=== PATIENT | female | born 1935 | race Two or more races ===

== ENCOUNTER 2023-10-09 11:56 | Inpatient (IN) | payer OTHER ==
[~2023-10-09] VITALS: Ht 160 cm; Wt 56.0 kg
[2023-10-09] MEDS ORDERED: SODIUM CHLORIDE 0.9% 1,000 ML IV ONE ×2 (13:45→15:45)
[2023-10-09 14:30] LABS: Basophils # (auto) 0 10 ^3/uL (0-0.2); Basophils % (auto) 0.3 % (0.0-2.0); Eosinophils # (auto) 0 10 ^3/uL (0-0.8); Hematocrit 43.7 % (36.0-46.0); Hemoglobin 14.3 g/dL (12.2-16.2); Lymphocytes # (auto) 0.6 10 ^3/uL (0.4-5.4); Lymphocytes % (auto) 3.6 % (10.0-50.0); Mean Corpuscular Hemoglobin 31.6 pg (28.0-32.0); Mean Corpuscular Hgb Conc. 32.6 g/dL (32.0-36.0); Mean Corpuscular Volume 96.8 fL (80.0-100.0); Monocytes # (auto) 1.4 10 ^3/uL (0-1.3); Monocytes % (auto) 8.4 % (0.0-12.0); Neutrophils # (auto) 14.2 10 ^3/uL (1.6-8.6); Neutrophils % (auto) 87.7 % (37.0-80.0); Red Blood Cells 4.51 10^6/uL (4.0-5.20); White Blood Cell 16.2 10^3/uL (4.4-10.8)
[2023-10-09 14:46] LABS: Alanine Aminotransferase 15 U/L (7-40); Albumin 4.8 g/dL (3.2-4.8); Alkaline Phosphatase 86 U/L (46-116); Anion Gap 12 (5-15); Aspartate Aminotransferase 15 U/L (13-40); BUN/Creatinine Ratio 14.8 (10.0-20.0); Blood Urea Nitrogen 18 mg/dL (9-23); Calcium 9.4 mg/dL (8.7-10.4); Carbon Dioxide 21 mmol/L (20-30); Chloride 103 mmol/L (98-107); Glucose 238 mg/dL (74-106); Lipase 25 U/L (12-53); Potassium 4.4 mmol/L (3.5-5.1); Sodium 136 mmol/L (136-145)
[2023-10-09 14:47] LABS: Bilirubin, Total 1.2 mg/dL (0.2-1.0); Total Protein 7.9 g/dL (5.7-8.2)
[2023-10-09 14:51] LABS: INR 1.09 (0.9-1.15); Partial Thromboplastin Time 33.3 SEC (24.5-34.5); Prothrombin Time 11.4 sec (9.3-11.8)
[2023-10-09] MEDS ORDERED: levoFLOXacin 500MG 100 ML IV ONE (15:00)
[2023-10-09 15:08] LABS: Lactic Acid w/Reflex 2.4 mmol/L (0.4-2.0)
[2023-10-09 15:30] VITALS: PULSE 99; RESP 24; O2SAT 93
[2023-10-09] MEDS ORDERED: PANTOPRAZOLE 40 MG/10 ML VIAL INJ IV ONE (15:45)
[2023-10-09] MEDS ORDERED: cefTRIAXone 1GM/50ML D5W 50 ML IV ONE (15:45)
[2023-10-09] MEDS ORDERED: metroNIDAZOLE 500MG/100ML 100 ML IV ONE (15:45)
[2023-10-09] MEDS: SODIUM CHLORIDE 0.9% 1,000 ML IV SCH (15:45)
[2023-10-09] MEDS ORDERED: DEXTROSE (50%) 50ML SYRG IV PRN (15:45)
[2023-10-09] MEDS ORDERED: NITR100C6 PO (15:48)
[2023-10-09] MEDS ORDERED: GLUC-245 XX (15:48)
[2023-10-09] MEDS ORDERED: MEMA1TAB3 PO (15:48)
[2023-10-09] MEDS ORDERED: METF-372 PO (15:48)
[2023-10-09] MEDS ORDERED: LISI-275 PO (15:48)
[2023-10-09] MEDS ORDERED: DONE5TAB80 PO (15:48)
[2023-10-09] MEDS ORDERED: GLIP5TAB12 PO (15:48)
[2023-10-09] MEDS ORDERED: INSUINJ37 SC (15:48)
[2023-10-09] MEDS ORDERED: TAMS0.4C36 PO (15:48)
[2023-10-09 16:53] LABS: Urine Bacteria FEW /hpf (None Seen); Urine Blood 1+ /uL (Negative); Urine Clarity HAZY (Clear); Urine Color Yellow (Yellow); Urine Protein, UAD 2+ (Negative); Urine Urobilinogen Normal (Negative); Urine WBC 119 /hpf (0 - 5); Urine pH 5.5 (5.0-8.0)
[2023-10-09] MEDS: ACCU-CHEK COMFORT CURVE STRIP VI SCH ×2 (17:00→22:00)
[2023-10-09] MEDS: InsuLIN REG 1unit/0.01ml Soln (100units/ml) SC SCH ×2 (17:00→22:51)
[2023-10-09 19:28] VITALS: BP 160/79; PULSE 108; RESP 18; TEMP 97.5
[2023-10-09 20:00] VITALS: PULSE 108; RESP 18; O2SAT 92
[2023-10-09 21:28] VITALS: BP 156/74; PULSE 111; RESP 20; TEMP 98.2; O2SAT 93
[2023-10-09] MEDS: metroNIDAZOLE 500MG/100ML 100 ML IV SCH (22:49)
[2023-10-10] VITALS (8 sets, daily range): BP systolic 139–166; BP diastolic 62–81; PULSE 88–110; RESP 18–20; TEMP 97.2–98.7; O2SAT 92–96
[2023-10-10] MEDS: MORPHINE SULFATE INJ 2 MG/ml SYRG IV PRN (03:21)
[2023-10-10 05:44] LABS: Basophils # (auto) 0.1 10 ^3/uL (0-0.2); Basophils % (auto) 0.3 % (0.0-2.0); Eosinophils # (auto) 0 10 ^3/uL (0-0.8); Hematocrit 39.4 % (36.0-46.0); Hemoglobin 12.9 g/dL (12.2-16.2); Lymphocytes # (auto) 0.9 10 ^3/uL (0.4-5.4); Lymphocytes % (auto) 5.3 % (10.0-50.0); Mean Corpuscular Hemoglobin 31.4 pg (28.0-32.0); Mean Corpuscular Hgb Conc. 32.8 g/dL (32.0-36.0); Mean Corpuscular Volume 95.8 fL (80.0-100.0); Monocytes % (auto) 11.8 % (0.0-12.0); Neutrophils # (auto) 14.2 10 ^3/uL (1.6-8.6); Neutrophils % (auto) 82.6 % (37.0-80.0); Red Blood Cells 4.11 10^6/uL (4.0-5.20); Red Cell Distribution Width 14.2 % (11.8-14.3); White Blood Cell 17.2 10^3/uL (4.4-10.8)
[2023-10-10 05:53] LABS: Alanine Aminotransferase 13 U/L (7-40); Alkaline Phosphatase 79 U/L (46-116); Anion Gap 13 (5-15); BUN/Creatinine Ratio 17.9 (10.0-20.0); Blood Urea Nitrogen 20 mg/dL (9-23); Calcium 9.2 mg/dL (8.7-10.4); Carbon Dioxide 18 mmol/L (20-30); Chloride 106 mmol/L (98-107); Glucose 161 mg/dL (74-106); Potassium 4.6 mmol/L (3.5-5.1); Sodium 137 mmol/L (136-145)
[2023-10-10 05:54] LABS: Albumin 4.2 g/dL (3.2-4.8); Aspartate Aminotransferase 26 U/L (13-40); Bilirubin, Total 0.8 mg/dL (0.2-1.0)
[2023-10-10 05:55] LABS: Total Protein 7.1 g/dL (5.7-8.2)
[2023-10-10] MEDS: InsuLIN REG 1unit/0.01ml Soln (100units/ml) SC SCH ×4 (06:37→22:04)
[2023-10-10] MEDS: metroNIDAZOLE 500MG/100ML 100 ML IV SCH ×3 (06:39→21:35)
[2023-10-10] MEDS: ACCU-CHEK COMFORT CURVE STRIP VI SCH ×4 (06:42→21:56)
[2023-10-10] MEDS: MEMANTINE HCL 5 MG TAB PO SCH (09:38)
[2023-10-10] MEDS: PANTOPRAZOLE 40 MG/10 ML VIAL INJ IV SCH (09:39)
[2023-10-10] MEDS: LISINOPRIL 5 MG TAB PO SCH (09:39)
[2023-10-10] MEDS: DONEPEZIL HYDROCHLORIDE 5 MG TAB PO SCH (09:39)
[2023-10-10] MEDS: cefTRIAXone 1GM/50ML D5W 50 ML IV SCH (09:41)
[2023-10-10] MEDS: SODIUM CHLORIDE 0.9% 1,000 ML IV SCH ×2 (09:49→18:25)
[2023-10-10] MEDS: METOPROLOL TARTRATE 25 MG TAB PO SCH (21:46)
[2023-10-11] VITALS (8 sets, daily range): BP systolic 134–184; BP diastolic 56–71; PULSE 72–94; RESP 17–94; TEMP 97.7–98.9; O2SAT 90–96
[2023-10-11] MEDS: metroNIDAZOLE 500MG/100ML 100 ML IV SCH ×3 (05:31→21:48)
[2023-10-11] MEDS: ACCU-CHEK COMFORT CURVE STRIP VI SCH ×4 (06:20→21:49)
[2023-10-11] MEDS: InsuLIN REG 1unit/0.01ml Soln (100units/ml) SC SCH ×4 (06:25→22:00)
[2023-10-11] MEDS: PANTOPRAZOLE 40 MG/10 ML VIAL INJ IV SCH (09:59)
[2023-10-11] MEDS: MEMANTINE HCL 5 MG TAB PO SCH (10:00)
[2023-10-11] MEDS: METOPROLOL TARTRATE 25 MG TAB PO SCH ×2 (10:03→21:49)
[2023-10-11] MEDS: LISINOPRIL 5 MG TAB PO SCH (10:04)
[2023-10-11] MEDS: DONEPEZIL HYDROCHLORIDE 5 MG TAB PO SCH (10:04)
[2023-10-11] MEDS: cefTRIAXone 1GM/50ML D5W 50 ML IV SCH (10:08)
[2023-10-11] MEDS: MORPHINE SULFATE INJ 2 MG/ml SYRG IV PRN ×2 (10:13→23:29)
[2023-10-11] MEDS: SODIUM CHLORIDE 0.9% 1,000 ML IV SCH (13:00)
[2023-10-12] VITALS (8 sets, daily range): BP systolic 124–134; BP diastolic 50–70; PULSE 73–83; RESP 16–23; TEMP 97.1–98.1; O2SAT 93–98
[2023-10-12] MEDS: SODIUM CHLORIDE 0.9% 1,000 ML IV SCH ×2 (02:20→15:40)
[2023-10-12] MEDS: metroNIDAZOLE 500MG/100ML 100 ML IV SCH ×3 (05:49→22:41)
[2023-10-12] MEDS: ACCU-CHEK COMFORT CURVE STRIP VI SCH ×4 (06:25→22:42)
[2023-10-12] MEDS: InsuLIN REG 1unit/0.01ml Soln (100units/ml) SC SCH ×4 (06:29→22:53)
[2023-10-12] MEDS: cefTRIAXone 1GM/50ML D5W 50 ML IV SCH (10:51)
[2023-10-12] MEDS: DONEPEZIL HYDROCHLORIDE 5 MG TAB PO SCH (10:51)
[2023-10-12] MEDS: METOPROLOL TARTRATE 25 MG TAB PO SCH ×2 (10:52→22:42)
[2023-10-12] MEDS: MEMANTINE HCL 5 MG TAB PO SCH (10:53)
[2023-10-12] MEDS: LISINOPRIL 5 MG TAB PO SCH (10:54)
[2023-10-12] MEDS ORDERED: BUPIVACAINE HCL 0.25% P/F 10 ML VIAL ONE (13:55)
[2023-10-12] MEDS ORDERED: MEPERIDINE HCL (25 MG/ML) 1ML VIAL ONE (13:59)
[2023-10-12] MEDS ORDERED: fentaNYL CITRATE 100 MCG/2 ML VL ONE (13:59)
[2023-10-12] MEDS ORDERED: MIDAZOLAM HCL 2MG/2ML 2ml VIAL (1mg/ml) ONE (13:59)
[2023-10-12] MEDS ORDERED: ONDANSETRON HCL 4 MG/2 ML VIAL IV ONE (14:44)
[2023-10-12] MEDS ORDERED: MIDAZOLAM HCL 2MG/2ML 2ml VIAL (1mg/ml) IV PRN (14:45)
[2023-10-12] MEDS ORDERED: ACCU-CHEK COMFORT CURVE STRIP VI ONE (14:45)
[2023-10-12] MEDS ORDERED: LABETALOL HCL 5 MG/ML 4ML SYRINGE IV PRN (14:45)
[2023-10-12] MEDS ORDERED: MORPHINE SULFATE INJ 2 MG/ml SYRG IV PRN (14:45)
[2023-10-12] MEDS ORDERED: ePHEDrine SULFATE 50 MG/ML AMP IV PRN (14:45)
[2023-10-12] MEDS ORDERED: ONDANSETRON HCL 4 MG/2 ML VIAL IV PRN (14:45)
[2023-10-12] MEDS ORDERED: DexAMETHasone SOD PHOS 10MG/1ML VIAL INJ ONE (15:16)
[2023-10-12] MEDS ORDERED: ETOMIDATE (2MG/ML) 20ML VIAL IV ONE (15:16)
[2023-10-12] MEDS ORDERED: SUGAMMADEX 200mg/2ml Vial (100MG/ML) IV ONE (15:16)
[2023-10-12] MEDS ORDERED: ROCURONIUM 10MG/ML 10ML VIAL IV ONE (15:47)
[2023-10-12] MEDS: HYDROmorphone HCL 2 MG/ML VL/or syr IV PRN ×2 (16:05→16:17)
[2023-10-13] VITALS (7 sets, daily range): BP systolic 132–141; BP diastolic 53–71; PULSE 68–96; RESP 18; TEMP 97.4–98.9; O2SAT 93–97
[2023-10-13] MEDS: metroNIDAZOLE 500MG/100ML 100 ML IV SCH ×3 (05:53→23:42)
[2023-10-13] MEDS: SODIUM CHLORIDE 0.9% 1,000 ML IV SCH ×2 (05:53→18:20)
[2023-10-13] MEDS: ACCU-CHEK COMFORT CURVE STRIP VI SCH ×4 (06:25→22:07)
[2023-10-13] MEDS: InsuLIN REG 1unit/0.01ml Soln (100units/ml) SC SCH ×4 (06:37→22:07)
[2023-10-13] MEDS: cefTRIAXone 1GM/50ML D5W 50 ML IV SCH (09:16)
[2023-10-13] MEDS: MEMANTINE HCL 5 MG TAB PO SCH (09:16)
[2023-10-13] MEDS: DONEPEZIL HYDROCHLORIDE 5 MG TAB PO SCH (09:16)
[2023-10-13] MEDS: LISINOPRIL 5 MG TAB PO SCH (09:17)
[2023-10-13] MEDS: METOPROLOL TARTRATE 25 MG TAB PO SCH ×2 (09:17→22:13)
[2023-10-13] MEDS: MORPHINE SULFATE INJ 2 MG/ml SYRG IV PRN (09:17)
[2023-10-13] MEDS ORDERED: HALOPERIDOL 1 MG TAB PO PRN (17:15)
[2023-10-13] MEDS: LORazepam 2MG/ML-1ML VIAL IV PRN (17:34)
[2023-10-14] VITALS (7 sets, daily range): BP systolic 123–157; BP diastolic 60–91; PULSE 77–116; RESP 18–20; TEMP 97.5–97.7; O2SAT 94–95
[2023-10-14] MEDS: LORazepam 2MG/ML-1ML VIAL IV PRN (01:03)
[2023-10-14] MEDS: metroNIDAZOLE 500MG/100ML 100 ML IV SCH ×3 (06:00→21:42)
[2023-10-14] MEDS: ACCU-CHEK COMFORT CURVE STRIP VI SCH ×4 (06:17→21:43)
[2023-10-14 06:24] LABS: Basophils # (auto) 0 10 ^3/uL (0-0.2); Eosinophils # (auto) 0 10 ^3/uL (0-0.8); Hematocrit 41.4 % (36.0-46.0); Hemoglobin 13.3 g/dL (12.2-16.2); Lymphocytes # (auto) 0.5 10 ^3/uL (0.4-5.4); Lymphocytes % (auto) 4.6 % (10.0-50.0); Mean Corpuscular Hemoglobin 30.9 pg (28.0-32.0); Mean Corpuscular Hgb Conc. 32.1 g/dL (32.0-36.0); Mean Corpuscular Volume 96.1 fL (80.0-100.0); Monocytes % (auto) 8.9 % (0.0-12.0); Neutrophils # (auto) 9.7 10 ^3/uL (1.6-8.6); Neutrophils % (auto) 86.5 % (37.0-80.0); Red Blood Cells 4.31 10^6/uL (4.0-5.20); Red Cell Distribution Width 14.2 % (11.8-14.3); White Blood Cell 11.2 10^3/uL (4.4-10.8)
[2023-10-14] MEDS: InsuLIN REG 1unit/0.01ml Soln (100units/ml) SC SCH ×4 (06:28→21:44)
[2023-10-14 06:41] LABS: Alanine Aminotransferase 23 U/L (7-40); Albumin 3.6 g/dL (3.2-4.8); Alkaline Phosphatase 106 U/L (46-116); Anion Gap 11 (5-15); Aspartate Aminotransferase 22 U/L (13-40); Bilirubin, Total 0.5 mg/dL (0.2-1.0); Blood Urea Nitrogen 35 mg/dL (9-23); Calcium 9.1 mg/dL (8.5-10.1); Carbon Dioxide 20 mmol/L (20-30); Chloride 110 mmol/L (98-107); Glucose 325 mg/dL (74-106); Potassium 3.8 mmol/L (3.5-5.1); Sodium 141 mmol/L (136-145); Total Protein 6.2 g/dL (5.7-8.2)
[2023-10-14] MEDS: SODIUM CHLORIDE 0.9% 1,000 ML IV SCH ×2 (07:40→21:00)
[2023-10-14] MEDS: DONEPEZIL HYDROCHLORIDE 5 MG TAB PO SCH (11:14)
[2023-10-14] MEDS: METOPROLOL TARTRATE 25 MG TAB PO SCH ×2 (11:15→21:43)
[2023-10-14] MEDS: LISINOPRIL 5 MG TAB PO SCH (11:15)
[2023-10-14] MEDS: MEMANTINE HCL 5 MG TAB PO SCH (11:15)
[2023-10-14] MEDS: cefTRIAXone 1GM/50ML D5W 50 ML IV SCH (11:16)
[2023-10-15 05:00] VITALS: BP 119/70; PULSE 63; RESP 16; TEMP 97.9; O2SAT 97
[2023-10-15] MEDS: metroNIDAZOLE 500MG/100ML 100 ML IV SCH ×3 (06:04→21:48)
[2023-10-15] MEDS: ACCU-CHEK COMFORT CURVE STRIP VI SCH ×4 (06:33→21:48)
[2023-10-15] MEDS: InsuLIN REG 1unit/0.01ml Soln (100units/ml) SC SCH ×4 (06:36→21:50)
[2023-10-15 08:55] VITALS: BP 121/64; PULSE 84; RESP 19; TEMP 97.9; O2SAT 97
[2023-10-15] MEDS: METOPROLOL TARTRATE 25 MG TAB PO SCH ×2 (10:03→21:48)
[2023-10-15] MEDS: LISINOPRIL 5 MG TAB PO SCH (10:03)
[2023-10-15] MEDS: DONEPEZIL HYDROCHLORIDE 5 MG TAB PO SCH (10:03)
[2023-10-15] MEDS: cefTRIAXone 1GM/50ML D5W 50 ML IV SCH (10:03)
[2023-10-15] MEDS: MEMANTINE HCL 5 MG TAB PO SCH (10:03)
[2023-10-15] MEDS: SODIUM CHLORIDE 0.9% 1,000 ML IV SCH ×2 (10:04→23:40)
[2023-10-15 12:53] VITALS: BP 126/60; PULSE 64; RESP 19; TEMP 97.4; O2SAT 97
[2023-10-15 16:55] VITALS: BP 142/60; PULSE 76; RESP 19; TEMP 97.7; O2SAT 97
[2023-10-15] MEDS: MORPHINE SULFATE INJ 2 MG/ml SYRG IV PRN (18:25)
[2023-10-15 20:00] VITALS: PULSE 70; RESP 18; O2SAT 95
[2023-10-15 21:45] VITALS: BP 145/62; PULSE 70; RESP 17; TEMP 98.1; O2SAT 97
[2023-10-16 04:41] VITALS: BP 139/75; PULSE 65; RESP 15; TEMP 98.4; O2SAT 98
[2023-10-16] MEDS: metroNIDAZOLE 500MG/100ML 100 ML IV SCH ×3 (05:29→22:11)
[2023-10-16] MEDS: ACCU-CHEK COMFORT CURVE STRIP VI SCH ×4 (06:32→22:11)
[2023-10-16] MEDS: InsuLIN REG 1unit/0.01ml Soln (100units/ml) SC SCH ×4 (06:43→22:19)
[2023-10-16 08:26] VITALS: BP 144/62; PULSE 74; RESP 20; TEMP 97.5; O2SAT 96
[2023-10-16] MEDS: DONEPEZIL HYDROCHLORIDE 5 MG TAB PO SCH (09:48)
[2023-10-16] MEDS: cefTRIAXone 1GM/50ML D5W 50 ML IV SCH (09:48)
[2023-10-16] MEDS: MEMANTINE HCL 5 MG TAB PO SCH (09:48)
[2023-10-16] MEDS: METOPROLOL TARTRATE 25 MG TAB PO SCH ×2 (09:48→22:11)
[2023-10-16] MEDS: LISINOPRIL 5 MG TAB PO SCH (09:48)
[2023-10-16] MEDS: SODIUM CHLORIDE 0.9% 1,000 ML IV SCH (12:03)
[2023-10-16 12:37] VITALS: BP 144/70; PULSE 69; RESP 20; TEMP 97.8; O2SAT 98
[2023-10-16 16:47] VITALS: BP 149/63; PULSE 68; RESP 20; TEMP 98.6; O2SAT 97
[2023-10-16 22:00] VITALS: BP 163/83; PULSE 85; RESP 18; TEMP 98.2; O2SAT 96
[2023-10-17] MEDS: SODIUM CHLORIDE 0.9% 1,000 ML IV SCH ×2 (03:07→15:46)
[2023-10-17 05:00] VITALS: BP 181/84; PULSE 93; RESP 19; TEMP 97.4; O2SAT 96
[2023-10-17] MEDS: LORazepam 2MG/ML-1ML VIAL IV PRN (05:39)
[2023-10-17] MEDS: metroNIDAZOLE 500MG/100ML 100 ML IV SCH ×3 (05:48→21:33)
[2023-10-17] MEDS: ACCU-CHEK COMFORT CURVE STRIP VI SCH ×4 (05:51→21:33)
[2023-10-17] MEDS: InsuLIN REG 1unit/0.01ml Soln (100units/ml) SC SCH ×4 (05:51→21:42)
[2023-10-17 06:41] LABS: Alanine Aminotransferase 17 U/L (7-40); Alkaline Phosphatase 71 U/L (46-116); Anion Gap 12 (5-15); BUN/Creatinine Ratio 15.4 (10.0-20.0); Blood Urea Nitrogen 12 mg/dL (9-23); Calcium 7.8 mg/dL (8.7-10.4); Carbon Dioxide 20 mmol/L (20-30); Chloride 110 mmol/L (98-107); Glucose 207 mg/dL (74-106); Potassium 3.2 mmol/L (3.5-5.1); Sodium 142 mmol/L (136-145)
[2023-10-17 06:42] LABS: Albumin 3.1 g/dL (3.2-4.8); Aspartate Aminotransferase 23 U/L (13-40)
[2023-10-17 06:43] LABS: Bilirubin, Total 0.5 mg/dL (0.2-1.0); Total Protein 5.5 g/dL (5.7-8.2)
[2023-10-17 07:04] LABS: Basophils # (auto) 0 10 ^3/uL (0-0.2); Basophils % (auto) 0.4 % (0.0-2.0); Eosinophils # (auto) 0.4 10 ^3/uL (0-0.8); Eosinophils % (auto) 3.9 % (0.0-7.0); Hematocrit 38.7 % (36.0-46.0); Hemoglobin 12.7 g/dL (12.2-16.2); Lymphocytes # (auto) 1.3 10 ^3/uL (0.4-5.4); Lymphocytes % (auto) 14.2 % (10.0-50.0); Mean Corpuscular Hemoglobin 31.1 pg (28.0-32.0); Mean Corpuscular Hgb Conc. 32.8 g/dL (32.0-36.0); Mean Corpuscular Volume 94.8 fL (80.0-100.0); Monocytes # (auto) 1.3 10 ^3/uL (0-1.3); Monocytes % (auto) 13.8 % (0.0-12.0); Neutrophils # (auto) 6.4 10 ^3/uL (1.6-8.6); Neutrophils % (auto) 67.7 % (37.0-80.0); Nucleated Red Blood Cells % 0.3 %; Red Blood Cells 4.08 10^6/uL (4.0-5.20); Red Cell Distribution Width 14.3 % (11.8-14.3); White Blood Cell 9.4 10^3/uL (4.4-10.8)
[2023-10-17 07:30] VITALS: BP 160/60; PULSE 80; TEMP 36.3
[2023-10-17 08:30] VITALS: BP 156/83; PULSE 94; RESP 18; TEMP 97.8; O2SAT 95
[2023-10-17] MEDS: cefTRIAXone 1GM/50ML D5W 50 ML IV SCH (09:32)
[2023-10-17] MEDS: LISINOPRIL 5 MG TAB PO SCH (09:32)
[2023-10-17] MEDS: METOPROLOL TARTRATE 25 MG TAB PO SCH ×2 (09:33→21:33)
[2023-10-17] MEDS: MEMANTINE HCL 5 MG TAB PO SCH (09:33)
[2023-10-17] MEDS: DONEPEZIL HYDROCHLORIDE 5 MG TAB PO SCH (21:33)
[2023-10-17 21:41] VITALS: BP_SYST 127; BP_SYST 150; BP_DIAS 64; BP_DIAS 72; PULSE 78; PULSE 80; RESP 17; TEMP 98; TEMP 98.3; O2SAT 93; O2SAT 98
[2023-10-18 05:00] VITALS: BP 139/67; PULSE 66; RESP 16; TEMP 98.1; O2SAT 94
[2023-10-18] MEDS: metroNIDAZOLE 500MG/100ML 100 ML IV SCH ×3 (06:38→21:48)
[2023-10-18] MEDS: SODIUM CHLORIDE 0.9% 1,000 ML IV SCH ×2 (06:38→18:20)
[2023-10-18] MEDS: ACCU-CHEK COMFORT CURVE STRIP VI SCH ×4 (06:43→21:54)
[2023-10-18] MEDS: InsuLIN REG 1unit/0.01ml Soln (100units/ml) SC SCH ×4 (06:49→21:50)
[2023-10-18 09:00] VITALS: BP 153/77; PULSE 78; RESP 12; TEMP 98.1; O2SAT 98
[2023-10-18] MEDS: cefTRIAXone 1GM/50ML D5W 50 ML IV SCH (09:35)
[2023-10-18] MEDS: MEMANTINE HCL 5 MG TAB PO SCH (09:36)
[2023-10-18] MEDS: LISINOPRIL 5 MG TAB PO SCH (09:37)
[2023-10-18] MEDS: METOPROLOL TARTRATE 25 MG TAB PO SCH ×2 (09:37→21:47)
[2023-10-18 13:00] VITALS: BP 135/68; PULSE 68; RESP 14; O2SAT 96
[2023-10-18 17:00] VITALS: BP 134/54; PULSE 75; RESP 14; O2SAT 97
[2023-10-18] MEDS: DONEPEZIL HYDROCHLORIDE 5 MG TAB PO SCH (21:47)
[2023-10-18 22:02] VITALS: BP 144/55; PULSE 89; RESP 20; TEMP 98; O2SAT 95
[2023-10-19 04:46] VITALS: BP 141/67; PULSE 86; RESP 20; TEMP 97.9; O2SAT 93
[2023-10-19] MEDS: ACCU-CHEK COMFORT CURVE STRIP VI SCH ×4 (06:38→22:42)
[2023-10-19] MEDS: InsuLIN REG 1unit/0.01ml Soln (100units/ml) SC SCH ×4 (06:38→22:46)
[2023-10-19] MEDS: metroNIDAZOLE 500MG/100ML 100 ML IV SCH ×3 (06:38→22:19)
[2023-10-19 08:00] VITALS: PULSE 68; RESP 16; RESP 18; O2SAT 96
[2023-10-19] MEDS: SODIUM CHLORIDE 0.9% 1,000 ML IV SCH ×2 (09:54→21:00)
[2023-10-19] MEDS: METOPROLOL TARTRATE 25 MG TAB PO SCH ×2 (09:55→22:31)
[2023-10-19] MEDS: cefTRIAXone 1GM/50ML D5W 50 ML IV SCH (09:55)
[2023-10-19] MEDS: MEMANTINE HCL 5 MG TAB PO SCH (09:56)
[2023-10-19] MEDS: LISINOPRIL 5 MG TAB PO SCH (09:56)
[2023-10-19 10:00] VITALS: BP 144/60; PULSE 88; RESP 20; TEMP 97.5; O2SAT 92
[2023-10-19 17:00] VITALS: BP 144/60; PULSE 84; RESP 21; TEMP 98.5; O2SAT 92
[2023-10-19 20:00] VITALS: PULSE 88; RESP 16; RESP 20; O2SAT 96
[2023-10-19 22:00] VITALS: BP 144/60; PULSE 88; RESP 20; TEMP 97.5; O2SAT 93
[2023-10-19] MEDS: DONEPEZIL HYDROCHLORIDE 5 MG TAB PO SCH (22:30)
[2023-10-20 05:21] VITALS: BP 114/55; PULSE 72; RESP 20; TEMP 98.5; O2SAT 91
[2023-10-20] MEDS: metroNIDAZOLE 500MG/100ML 100 ML IV SCH (06:00)
[2023-10-20] MEDS: InsuLIN REG 1unit/0.01ml Soln (100units/ml) SC SCH ×2 (06:53→12:17)
[2023-10-20] MEDS: ACCU-CHEK COMFORT CURVE STRIP VI SCH ×2 (06:53→12:16)
[2023-10-20 08:00] VITALS: PULSE 70; RESP 18; O2SAT 95
[2023-10-20 09:00] VITALS: BP 119/48; PULSE 82; RESP 19; TEMP 98.1; O2SAT 93
[2023-10-20] MEDS: MEMANTINE HCL 5 MG TAB PO SCH (10:21)
[2023-10-20] MEDS: cefTRIAXone 1GM/50ML D5W 50 ML IV SCH (10:21)
[2023-10-20] MEDS: METOPROLOL TARTRATE 25 MG TAB PO SCH (10:22)
[2023-10-20] MEDS: LISINOPRIL 5 MG TAB PO SCH (10:23)
[2023-10-20] MEDS: SODIUM CHLORIDE 0.9% 1,000 ML IV SCH (10:23)
[2023-10-20] MEDS ORDERED: METR-344 PO (11:12)
[2023-10-20] MEDS ORDERED: LEVO500T91 PO (11:12)
[2023-10-20] MEDS ORDERED: PANT40T PO (11:12)
[2023-10-20 12:34] VITALS: BP 121/68; PULSE 80; TEMP 36.7
[2023-10-20 13:00] VITALS: BP 133/65; PULSE 68; RESP 20; TEMP 98.1; O2SAT 95
[2023-10-20 13:10] VITALS: BP 121/68; PULSE 80; TEMP 36.7
== END 2023-10-20 14:45 | disposition home or self-care (01) | DRG 853 ==
LOC: ER 11:56 → EDBD 11:56 → OVERFLOW 15:38 → CENTRAL 18:22
PROVIDERS: ADMIT Nurse Practitioner Family; ATTEND Family Medicine
PROC: 0W9F4ZZ Drainage of Abdominal Wall, Percutaneous Endoscopic Approach (ICD-10-PCS; 2023-10-12)
PROC: 0DNU4ZZ Release Omentum, Percutaneous Endoscopic Approach (ICD-10-PCS; 2023-10-12)
PROC: 0FT44ZZ Resection of Gallbladder, Percutaneous Endoscopic Approach (ICD-10-PCS; principal; 2023-10-12 14:12)
DX: A41.9 Sepsis, unspecified organism (principal); K65.1 Peritoneal abscess; K81.0 Acute cholecystitis; E11.9 Type 2 diabetes mellitus without complications; I10 Essential (primary) hypertension; F03.90 Unspecified dementia, unspecified severity, without behavioral disturbance, psychotic disturbance, mood disturbance, and anxiety; R63.6 Underweight; I48.91 Unspecified atrial fibrillation; K66.0 Peritoneal adhesions (postprocedural) (postinfection); K82.8 Other specified diseases of gallbladder; Z68.21 Body mass index [BMI] 21.0-21.9, adult
CPT/HCPCS: 36415; 71045; 71250; 74176; 76705; 80053; 81001; 82962; 83036; 83605; 83690; 83735; 84484; 85025; 85610; 85730; 87040; 87086; 93005; 93306; 96365; 97110; 97116; 97163; 97530; C9113; G0378; J0696; J1100; J1815; J1956; J2250; J2405; J3490

== ENCOUNTER 2023-11-14 12:23 | Emergency (ER) | payer OTHER ==
[~2023-11-14] VITALS: Ht 152.4 cm; Wt 63.6 kg
[~2023-11-14 12:23] MED LIST: DONE5TAB80 PO; GLIP5TAB12 PO; GLUC-245 XX; INSUINJ37 SC; LEVO500T91 PO; LISI-275 PO; MEMA1TAB3 PO; METF-372 PO; METR-344 PO; NITR100C6 PO; PANT40T PO; TAMS0.4C36 PO
[2023-11-14 13:46] VITALS: O2SAT 98
[2023-11-14 13:50] LABS: Basophils # (auto) 0 10 ^3/uL (0-0.2); Basophils % (auto) 0.7 % (0.0-2.0); Eosinophils # (auto) 0.1 10 ^3/uL (0-0.8); Eosinophils % (auto) 2.6 % (0.0-7.0); Hematocrit 38.7 % (36.0-46.0); Hemoglobin 12.8 g/dL (12.2-16.2); Lymphocytes # (auto) 1.4 10 ^3/uL (0.4-5.4); Lymphocytes % (auto) 26.9 % (10.0-50.0); Mean Corpuscular Hemoglobin 31.6 pg (28.0-32.0); Mean Corpuscular Hgb Conc. 33.2 g/dL (32.0-36.0); Mean Corpuscular Volume 95.4 fL (80.0-100.0); Monocytes # (auto) 0.5 10 ^3/uL (0-1.3); Neutrophils # (auto) 3.3 10 ^3/uL (1.6-8.6); Neutrophils % (auto) 60.8 % (37.0-80.0); Nucleated Red Blood Cells % 0.1 %; Red Blood Cells 4.05 10^6/uL (4.0-5.20); Red Cell Distribution Width 16.7 % (11.8-14.3); White Blood Cell 5.4 10^3/uL (4.4-10.8)
[2023-11-14 14:05] LABS: Alanine Aminotransferase 21 U/L (7-40); Albumin 4.3 g/dL (3.2-4.8); Alkaline Phosphatase 72 U/L (46-116); Anion Gap 11 (5-15); Aspartate Aminotransferase 32 U/L (13-40); Bilirubin, Total 0.3 mg/dL (0.2-1.0); Blood Urea Nitrogen 22 mg/dL (9-23); Calcium 9.7 mg/dL (8.5-10.1); Carbon Dioxide 24 mmol/L (20-30); Chloride 107 mmol/L (98-107); Glucose 87 mg/dL (74-106); Potassium 3.8 mmol/L (3.5-5.1); Sodium 142 mmol/L (136-145)
[2023-11-14] MEDS ORDERED: NEOMYCIN-BACITRACIN-POLYM UNITDOSE PKG TOP OINT TOP ONE (14:45)
[2023-11-14] MEDS ORDERED: LIDOCAINE 2%HCL (LOCAL ANESTH.) INJ 20ML MDV ID ONE (14:45)
[2023-11-14 15:00] VITALS: BP 160/94; RESP 17; O2SAT 96
[2023-11-14 16:21] LABS: Urine Bacteria NONE SEEN /hpf (None Seen); Urine Blood Negative /uL (Negative); Urine Clarity Clear (Clear); Urine Protein, UAD Negative (Negative); Urine Urobilinogen Normal (Negative); Urine WBC 1 /hpf (0 - 5)
[2023-11-14 16:28] LABS: Urine Color STRAW (Yellow)
[2023-11-14 16:30] VITALS: PULSE 94
[2023-11-14] MEDS ORDERED: CEFD300C2 PO (16:55)
[2023-11-14] MEDS ORDERED: BACI1OIN45 EX (16:55)
== END 2023-11-15 02:33 | disposition home or self-care (01) ==
LOC: ER 12:23 → EDBD 12:23 → ER 11-15 02:33
DX: S01.111A Laceration without foreign body of right eyelid and periocular area, initial encounter (principal); R55 Syncope and collapse; R41.82 Altered mental status, unspecified; E11.9 Type 2 diabetes mellitus without complications; I10 Essential (primary) hypertension; F03.90 Unspecified dementia, unspecified severity, without behavioral disturbance, psychotic disturbance, mood disturbance, and anxiety; W18.39XA Other fall on same level, initial encounter; Y93.89 Activity, other specified; Y92.89 Other specified places as the place of occurrence of the external cause; Y99.8 Other external cause status
CPT/HCPCS: 12011; 36415; 70450; 71101; 72125; 73502; 80053; 81001; 84484; 85025; 93005